=== PATIENT | female | born 1985 | race Two or more races ===

== ENCOUNTER 2018-08-31 07:05 | Inpatient (IN) | payer BC ==
[2018-08-31] MEDS ORDERED: MISOPROSTOL 200 MCG TAB PR PRN (07:42)
[2018-08-31] MEDS ORDERED: LR 1,000 ML IV PRN (07:42)
[2018-08-31] MEDS ORDERED: LIDOCAINE 1% 300 MG/30 ML SDV SC PRN (07:42)
[2018-08-31] MEDS ORDERED: OXYTOCIN/RINGERS LACTATE 1,000 ML IV PRN (07:42)
[2018-08-31] MEDS ORDERED: EPSOM SALT 454 GM TP PRN (07:42)
[2018-08-31] MEDS ORDERED: OLIVE OIL 118 ML BTL MISC PRN (07:42)
[2018-08-31] MEDS ORDERED: PENICILLIN G POTASSIUM 5,000,000 UNIT in D5W 150 ML IV ONE (07:42)
[2018-08-31] MEDS ORDERED: IBUPROFEN 600 MG TAB PO PRN (07:42)
[2018-08-31 08:05] LABS: PLATELET COUNT 308 10^3/uL (150-400)
[2018-08-31] MEDS ORDERED: LIDOCAINE 1% 300 MG/30 ML SDV ONE (08:06)
[2018-08-31] MEDS ORDERED: OLIVE OIL 118 ML BTL MISC ONE (08:06)
[2018-08-31] MEDS ORDERED: TERBUTALINE SULFATE 1 MG/ML VIAL ONE (08:06)
[2018-08-31] MEDS ORDERED: AMMONIA AROMATIC 1 EACH AMP IH ONE (08:06)
[2018-08-31] MEDS ORDERED: OXYTOCIN 10 UNIT/ML VIAL ONE (08:07)
[2018-08-31] MEDS ORDERED: MISOPROSTOL 200 MCG TAB ONE (08:07)
[2018-08-31] MEDS ORDERED: BETAMETHASONE IM SYRINGE IM ONE (08:28)
[2018-08-31] MEDS ORDERED: fentaNYL 2MCG/ML/BUP 0.1% RTU 100 ML BAG EP ONE (08:34)
[2018-08-31] MEDS ORDERED: BUPIVACAINE 0.25% 10 ML SDV ONE (08:35)
[2018-08-31] MEDS ORDERED: NALOXONE HCL 0.4 MG/ML INJ IVP PRN (09:03)
[2018-08-31] MEDS ORDERED: METOCLOPRAMIDE 10 MG/2 ML VIAL IVP PRN (09:03)
[2018-08-31] MEDS ORDERED: PHENYLEPHRINE HCL 100 MCG/ML SYR IVP PRN (09:03)
[2018-08-31] MEDS ORDERED: ONDANSETRON 4 MG/2 ML VIAL IVP PRN (09:03)
--- NOTE | 2018-08-31 09:03 | PREANESOB ---
Anesthesia Allergies/Adverse Reactions: Allergy/AdvReac Type Severity Reaction Status Date / Time No Known Allergies Allergy Unverified 08/31/18 07:42 Home Medications: Medication Instructions Recorded Vit27&Calcium/Iron/FA 1 each PO DAILY 08/31/18 [ Rx 1 Tablet (RX)] Visit Medications: Generic Name Dose Route Start Last Admin Trade Name Oskar PRN Reason Stop Dose Admin Lactated Ringer's 1,000 mls @ 0 mls/hr 08/31/18 07:42 Lr IV 09/01/18 07:41 PRN PRN SEE PROTOCOL CONDITIONS Protocol Per Protocol Oxytocin/Lactated Ringer's 1,000 mls @ 125 mls/hr 08/31/18 07:42 Pitocin 20 Units/Lr (Premix) IV PRN PRN Post bleeding Penicillin G Potassium 2,500, 155 mls @ 155 mls/hr 08/31/18 11:43 000 unit/ Dextrose IV 09/30/18 11:42 Q4H MAXX Protocol Ibuprofen 600 mg 08/31/18 07:42 Motrin PO ONCE PRN post , pain Lidocaine HCl 300 mg 08/31/18 07:42 Lidocaine Hcl 1% SC 02/27/19 07:41 ONCE PRN episiotomy Magnesium Sulfate 454 gm 08/31/18 07:42 Epsom Salt TP 02/27/19 07:41 Q1H PRN perineal discomfort Misoprostol 800 - 1,000 mcg 08/31/18 07:42 Cytotec AL ONCE PRN Vaginal Atony/Bleeding Nutley Oil 118 ml 08/31/18 07:42 Sweet Oil MISC 02/27/19 07:41 ONCE PRN perineal massage Discontinued Medications Generic Name Dose Route Start Last Admin Trade Name Oskar PRN Reason Stop Dose Admin Ammonia (Aromatic Spirit) Confirm 08/31/18 08:06 Ammonia Aromatic Administered 08/31/18 08:07 Dose 1 each IH .STK-MED ONE Betamethasone Acet/Betameth SodPhos 12 mg 08/31/18 08:28 Celestone Im Syringe IM 08/31/18 08:29 ONCE ONE Bupivacaine HCl Confirm 08/31/18 08:35 Sensorcaine 0.25% Sdv Administered 08/31/18 08:36 Dose 10 ml .ROUTE .STK-MED ONE Fentanyl/Bupivacaine HCl Confirm 08/31/18 08:34 Fentanyl/Bupivacaine/Ns 2 Mcg/Ml 0.1% (Premix Administered 08/31/18 08:35 Dose 100 ml EP .STK-MED ONE Penicillin G Potassium 5,000, 160 mls @ 160 mls/hr 08/31/18 07:42 08/31/18 08 :15 000 unit/ Dextrose IV 08/31/18 08:41 160 mls ONCE ONE Administration Protocol Lidocaine HCl Confirm 08/31/18 08:06 Lidocaine Hcl 1% Administered 08/31/18 08:07 Dose 300 mg .ROUTE .STK-MED ONE Misoprostol Confirm 08/31/18 08:07 Cytotec Administered 08/31/18 08:08 Dose 1,000 mcg .ROUTE .STK-MED ONE Nutley Oil Confirm 08/31/18 08:06 Sweet Oil Administered 08/31/18 08:07 Dose 118 ml MISC .STK-MED ONE Oxytocin Confirm 08/31/18 08:07 Pitocin Administered 08/31/18 08:08 Dose 40 unit .ROUTE .STK-MED ONE Terbutaline Sulfate Confirm 08/31/18 08:06 Brethine Administered 08/31/18 08:07 Dose 1 mg .ROUTE .STK-MED ONE - Vital Signs Height/Weight (Nursing): Height 161 cm Weight 66 kg Labs: 08/31/18 07:42 Patient ABO/Rh A POSITIVE 08/31/18 07:42 - Plan Consent Signed and on Chart: Yes Patient/Guardian Understands and Agrees to Plan: Yes Urgent/Emergent Case: Anephil verduzco completed preop but documented later for safe timely pt care
[2018-08-31] MEDS ORDERED: fentaNYL 2MCG/ML/BUP 0.1% RTU 100 ML EP SCH (09:30)
[2018-08-31] MEDS ORDERED: LR 500 ML IV SCH (09:30)
--- NOTE | 2018-08-31 09:34 | GHP ---
[f rep st] PREOP HISTORY AND PHYSICAL DATE OF ADMISSION: 08/31/2018 HISTORY: The patient is a 32-year-old [place] female, G2, P1, at 36 weeks and 1 day with an estimate d due date of September 27, 2018, who presents in active labor. Patient reports spontaneous onset of con tractions at approximately midnight, but increased intensity and regularity after 3 a.m. Upon arriva l to Labor and Delivery, the patient had a category 1 tracing with regular contractions, and her cerv ix was 6 cm dilated, 90% effaced, at -1 station. Patient was admitted for delivery. Bag of water wa s intact, and the patient denies bleeding. The patient is requesting an epidural, and this is being placed right now. CARE: The patient has been with [facility] since 10 weeks' gestation. The ira nt has had a low-risk . She has a history of rosacea and has used Metrogel cream periodical ly. Patient had a 20-week ultrasound showing the fetus had good growth, was 86th percentile weight w ith an anterior placenta. The patient has been anemic in the and was advised to take iron. LABS: Maternal blood type A positive with negative antibody screen. RPR nonreactive. Rube lla low immune. Hepatitis B surface antigen negative. HIV negative. Verifi testing was negative. Standard genetic panel was negative. MSAFP was negative. Urinalysis and culture were negative. [place] drug screen negative. Gonorrhea and chlamydia negative. Initial hematocrit was 34%, and the bravo ent has been on iron. Hematocrit has stayed relatively stable, 33% to 35%. 1-hour Glucola was megan l. Varicella and parvovirus testing have shown immunity. GBS culture not performed yet. PAST MEDICAL HISTORY: History of rosacea; history of asthma as a child, but no problems for years. PAST SURGICAL HISTORY: Umbilical hernia repaired at the age of 1. PAST OBSTETRIC HISTORY: In March 2015, a viable male at 7-1/2 pounds at 38 weeks' gestation with a vaginal delivery with epidural. ALLERGIES: The patient has no known drug allergies. CURRENT MEDICATIONS: vitamins and topical Metrogel cream. Also, iron therapy. SOCIAL HISTORY: The patient is , lives with her , [place], and their son. Patient is n ot currently a smoker, but previously smoked a half a pack a day, ages 14 to 16. Socially, the patie nt drank alcohol prior to , but none in the , and no drug use. PHYSICAL EXAMINATION: Upon admission, the patient is a well-developed, well-nourished, [place] femal e with increasing discomfort with contractions. Patient breathing quietly and currently is having an epidural placement. Initial vital signs upon admission: Blood pressure 137/83, heart rate 103, tem perature 36.8. Fetus has shown a category 1 tracing with baseline in the 120s with good [id number] variability and accelerations. No decelerations noted. Contractions every 3 minutes. Currently, b ag of water intact. EXTREMITIES: Nontender, and no edema. Exam has not been repeated from the init ial exam by the nurse; that was 6 cm dilated, 90% effaced, at -1 station. ASSESSMENT: Intrauterine at 36 weeks and 1 day. Active labor, getting an epidural. Bag o f water intact. Group B streptococcus unknown, and 1 dose of penicillin has been given. Patient als o has received 1 dose of betamethasone. PLAN: Expect vaginal delivery. Rubella low immune, and will vaccinate with MMR after delivery. His tory of anemia, and will check crit after delivery. /[id number]/MODL
[2018-08-31] MEDS ORDERED: CALCIUM CARBONATE 500 MG CHEWABLE TAB PO PRN (10:15)
[2018-08-31] MEDS ORDERED: PENICILLIN G POTASSIUM 2,500,000 UNIT in D5W 150 ML IV SCH (11:43)
[2018-08-31] MEDS ORDERED: MEASLES,MUMPS&RUBELLA VACC/PF 0.5 ML VIAL SC ONE (14:47)
--- NOTE | 2018-08-31 14:51 | OBDEL ---
Info Type: Vaginal Presentation at Delivery: Vertex L&D Analgesia/Anesthesia Type: Epidural GBS+: Yes (UNKNOWN BUT TREATED) Intrapartum Medications: Generic Name Dose Route Start Last Admin Trade Name Freq PRN Reason Stop Dose Admin Calcium Carbonate 500 mg 08/31/18 10:15 08/31/18 10:33 Tums PO 02/27/19 10:14 500 mg TID PRN Administration Indigestion Penicillin G Potassium 2,500, 155 mls @ 155 mls/hr 08/31/18 11:43 08/31/18 12 :09 000 unit/ Dextrose IV 09/30/18 11:42 155 mls Q4H MAXX Administration Protocol Discontinued Medications Generic Name Dose Route Start Last Admin Trade Name Freq PRN Reason Stop Dose Admin Betamethasone Acet/Betameth SodPhos 12 mg 08/31/18 08:28 08/31/18 09:16 Celestone Im Syringe IM 08/31/18 08:29 12 mg ONCE ONE Administration Penicillin G Potassium 5,000, 160 mls @ 160 mls/hr 08/31/18 07:42 08/31/18 08 :15 000 unit/ Dextrose IV 08/31/18 08:41 160 mls ONCE ONE Administration Protocol Ibuprofen 600 mg 08/31/18 07:42 08/31/18 14:42 Motrin PO 600 mg ONCE PRN Administration post , pain PCN GIVEN X 2 DOSES FOR UNKNOWN GBS Indications for Delivery: Spontaneous Labor Vaginal Delivery - Delivery Provider Delivery Physician/CNM: Sarah Rizvi - Labor and Delivery Onset of Contractions Date: 08/31/18 Onset of Contractions Time: 03:00 Onset of Contractions Type: Spontaneous Rupture of Membranes Date: 08/31/18 Rupture of Membranes Time: 13:56 Rupture of Membranes Type: Artificial Amniotic Fluid Color: Clear Dilation Complete Date: 08/31/18 Dilation Complete Time: 13:56 Placenta Delivery Date: 08/31/18 Placenta Delivery Time: 14:14 Total Hours of Labor: 11 Non-surgical Procedures: Amniotomy Laceration: 1st Degree (midline) Repair: Other (Specify) (none needed) Vaginal Sponge Count Correct: Yes Vaginal Needle Count Correct: Yes Vaginal Sweep Performed: Yes EBL: 300 Delivery Events: Nuchal Cord (x1 loose and reduced) [place] Data REGAN: 09/27/18 Gestational Age: 36 week(s) and 1 day(s) A[place] Delivery Date: 08/31/18 Delivery Time: 14:07 Sex of : Male ([place]) Score (1 Min): 7 Score (5 Min): 8 ICD10 Worksheet Patient Problems: Problems Problem Status Onset delivery Acute (spontaneous vaginal delivery) Acute - ICD10 Problem Qualifiers (1) delivery
[2018-08-31] MEDS: ACETAMINOPHEN 325 MG TAB PO PRN (21:18)
[2018-08-31] MEDS: IBUPROFEN 600 MG TAB PO PRN (21:18)
[2018-09-01] MEDS: oxyCODONE IR 5 MG TAB PO PRN ×3 (02:08→19:39)
[2018-09-01] MEDS: ACETAMINOPHEN 325 MG TAB PO PRN ×4 (03:36→21:36)
[2018-09-01] MEDS: IBUPROFEN 600 MG TAB PO PRN ×4 (03:37→21:36)
--- NOTE | 2018-09-01 09:46 | POSTANESTH ---
Post Anesthetic Evaluation Cardiovascular Status: Normal, Stable Respiratory Status: Normal, Stable Level of Consciousness/Mental Status: Can Participate in Eval Pain Control: Adequate, Prn Tx Ordered Nausea/Vomiting Control: Adequate, Prn Tx Ordered Complications Possibly Related to Anesthesia: None Noted
--- NOTE | 2018-09-01 12:19 | OBPP ---
Progress Note Assessment/Plan: Assessment: 32 yo now - delivered via last night at 36w1d. Baby needed CPAP overnight, but now on RA w/ some supplemental O2. Did get BMZ dose x 1 hours before delivery and adequate tx for GBS unknown. Routine cares, mom is doing great. Hct 31, started BID iron. May be ready to leave tomorrow, will see how baby is doing. Would be interested in boarding. Rh pos Rubella low-immune - No MMR needed if > 10. JM Laboratory Tests 08/31/18 09/01/18 07:42 04:30 Hct 35.6 L 31.8 L Laboratory Tests 03/31/18 14:06 Rubella IgG Antibody 14.10 Subjective/ Course: Doing well this AM - baby at the breast, off CPAP. Pain well controlled. Would like to take something for constipation. Objective: 09/01/18 04:30 Patient ABO/Rh A POSITIVE 08/31/18 07:42 Temp Pulse Resp BP Pulse Ox 36.8 C 92 17 114/73 95 09/01/18 08:00 09/01/18 08:00 09/01/18 08:00 09/01/18 08:00 09/01/18 08:00 Uterine Tone: Firm (Per RN)
[2018-09-01] MEDS: DOCUSATE SODIUM 100 MG CAP PO SCH ×2 (14:54→21:43)
[2018-09-01] MEDS ORDERED: MEASLES,MUMPS&RUBELLA VACC/PF 0.5 ML VIAL SC ONE (15:30)
[2018-09-01] MEDS: FERRO-SEQUELS 65 MG TAB.ER PO SCH (19:39)
[2018-09-02] MEDS: ACETAMINOPHEN 325 MG TAB PO PRN ×3 (03:39→16:02)
[2018-09-02] MEDS: IBUPROFEN 600 MG TAB PO PRN ×3 (03:40→16:01)
[2018-09-02] MEDS: DOCUSATE SODIUM 100 MG CAP PO SCH ×2 (09:02→16:03)
[2018-09-02] MEDS: FERRO-SEQUELS 65 MG TAB.ER PO SCH ×2 (09:03→16:03)
[2018-09-02 10:35] VITALS: BP 111/78
--- NOTE | 2018-09-02 11:27 | OBPP ---
Progress Note Assessment/Plan: Assessment: ppd# 2 s/p baby in NICU due to being late RH+/RI breast feeding Plan: 09/02/18 11:25 Subjective/ Course: Doing well this AM - baby at the breast, off CPAP. Pain well controlled. Would like to take something for constipation. 09/02/18 11:25 patient is doing well. working on breast feeding. normal lochia. baby is doing well and may be discharged tomorrow. denies headache and changes in vision. discussed discharge to [facility] Objective: 09/01/18 04:30 Patient ABO/Rh A POSITIVE 08/31/18 07:42 Temp Pulse Resp BP Pulse Ox 36.4 C 78 16 111/78 98 09/02/18 09:40 09/02/18 09:40 09/02/18 09:40 09/02/18 09:40 09/02/18 09:40 Physical Exam - Physical Exam Neck: non-tender, full range of motion, supple Respiratory: chest non-tender, lungs clear, normal breath sounds Cardiac/Chest: normal peripheral pulses, regular rate, rhythm Abdomen: normal bowel sounds, non-tender, other (fundus firm and non tender) Extremities: normal range of motion, non-tender, normal inspection, normal capillary refill Skin: normal color, warm/dry Neuro/Psych: no motor/sensory deficits, alert, normal mood/affect, oriented x 3
--- NOTE | 2018-09-02 11:28 | OBGCSDC ---
General Delivery Information - General Info : 2 Para: 2 Abortions: 0 Type: Vaginal L&D Analgesia/Anesthesia Type: Epidural Admission Date: 08/31/18 Labs: Patient ABO/Rh A POSITIVE 08/31/18 07:42 Hct 31.8 % (38.0-47.0) L 09/01/18 04:30 - Hospital Course : Doing well this AM - baby at the breast, off CPAP. Pain well controlled. Would like to take something for constipation. 09/02/18 11:25 patient is doing well. working on breast feeding. normal lochia. baby is doing well and may be discharged tomorrow. denies headache and changes in vision. [facility] status Vaginal - Delivery Provider Delivery Physician/CNM: Sarah Rizvi - Diagnosis Labor: Spontaneous Rupture of Membranes Type: Artificial Amniotic Fluid Color: Clear Laceration: 1st Degree (midline) Repair: Other (Specify) (none needed) Delivery Events: Nuchal Cord (x1 loose and reduced) - Procedures Non-surgical Procedures: Amniotomy - Delivery Non-surgical Procedures: Amniotomy EBL: 300 Data REGAN: 09/27/18 Gestational Age: 36 week(s) and 3 day(s) Aparicio Delivery Date: 08/31/18 Delivery Time: 14:07 Sex of : Male Weight (gm): 2760 kg Score (1 Min): 7 Score (5 Min): 8 Discharge Information - Discharge Information Prescriptions: oxyCODONE IR [Oxycodone Ir (*)] 5 mg PO Q4 PRN #5 tab PRN Reason: PAIN/CRAMPING Condition: Good Instruction/Follow Up: Four Weeks (mood check ), Six Weeks (post visit)
--- NOTE | 2018-09-02 12:00 | OBGCSDC ---
General Delivery Information - General Info : 2 Para: 2 Abortions: 0 Type: Vaginal L&D Analgesia/Anesthesia Type: Epidural Admission Date: 08/31/18 Labs: Patient ABO/Rh A POSITIVE 08/31/18 07:42 Hct 31.8 % (38.0-47.0) L 09/01/18 04:30 - Hospital Course : Doing well this AM - baby at the breast, off CPAP. Pain well controlled. Would like to take something for constipation. 09/02/18 11:25 patient is doing well. working on breast feeding. normal lochia. baby is doing well and may be discharged tomorrow. denies headache and changes in vision. discussed discharge to [facility] status Vaginal - Delivery Provider Delivery Physician/CNM: Sarah Rizvi - Diagnosis Labor: Spontaneous Rupture of Membranes Type: Artificial Amniotic Fluid Color: Clear Laceration: 1st Degree (midline) Repair: Other (Specify) (none needed) Delivery Events: Nuchal Cord (x1 loose and reduced) - Procedures Non-surgical Procedures: Amniotomy - Delivery Non-surgical Procedures: Amniotomy EBL: 300 Data REGAN: 09/27/18 Gestational Age: 36 week(s) and 3 day(s) Aparicio Delivery Date: 08/31/18 Delivery Time: 14:07 Sex of : Male Weight (gm): 2760 kg Score (1 Min): 7 Score (5 Min): 8 Discharge Information - Discharge Information Prescriptions: oxyCODONE IR [Oxycodone Ir (*)] 5 mg PO Q4 PRN #5 tab PRN Reason: PAIN/CRAMPING Condition: Good Instruction/Follow Up: Four Weeks (mood check ), Six Weeks (post visit)
[2018-09-02] MEDS: oxyCODONE IR 5 MG TAB PO PRN ×2 (12:16→16:03)
== END 2018-09-02 19:01 | disposition home or self-care (01) | DRG 807 ==
LOC: OBSVTOIN 07:05 → FLD 07:05 → FOB 16:30
PROVIDERS: ADMIT Obstetrics & Gynecology; ATTEND Obstetrics & Gynecology
PROC: 10E0XZZ Delivery of Products of Conception, External Approach (ICD-10-PCS; principal; 2018-08-31)
PROC: 10907ZC Drainage of Amniotic Fluid, Therapeutic from Products of Conception, Via Natural or Artificial Opening (ICD-10-PCS; 2018-08-31)
DX: O60.14X0 Preterm labor third trimester with preterm delivery third trimester, not applicable or unspecified (principal); O70.0 First degree perineal laceration during delivery; O69.81X0 Labor and delivery complicated by cord around neck, without compression, not applicable or unspecified; Z3A.36 36 weeks gestation of pregnancy; Z37.0 Single live birth
CPT/HCPCS: J0702; J2540; J2590; J3105